=== PATIENT | male | born 1985 ===

== ENCOUNTER → 2020-11-22 | Emergency (ER) | payer SELFPAY ==
[~2020-11-22] MED LIST: ACETAMINOPHEN 325 MG TAB PO PRN; ALBUTEROL 2.5 MG/3 ML NEBU IH PRN; ALUM-MAG HYDROXIDE-SIMETHICONE 200-200-20MG/5ML ORAL LIQD 30 ML PO PRN; ASPIRIN 325 MG TAB PO ONE; ASPIRIN 81 MG TAB CHEW PO SCH; FAMOTIDINE 20 MG TAB PO SCH; FUROSEMIDE 40 MG/4 ML INJ IV ONE; FUROSEMIDE 40 MG/4 ML INJ IV SCH; LISINOPRIL 20 MG TAB PO SCH; METOPROLOL TARTRATE 25 MG TAB PO SCH; NALOXONE 0.4 MG/1 ML INJ IV PRN; NITROGLYCERIN 2% OINT 1 GM TP ONE; ONDANSETRON 4 MG/2 ML INJ IV PRN; SENNOSIDES 8.6 MG TAB PO SCH; SPIRONOLACTONE 25 MG TAB PO SCH; oxyCODONE /ACETAMINOPHEN 5-325MG TAB PO PRN
--- NOTE | 2020-11-22 07:18 | XRay Report ---
CHEST 1 VIEW 11/22/2020 6:05 AM INDICATION / CLINICAL INFORMATION: Cough and STEVIE. COMPARISON: None available. FINDINGS: SUPPORT DEVICES: None. HEART / MEDIASTINUM: Mild cardiomegaly. LUNGS / PLEURA: Mild interstitial edema. No pneumothorax. ADDITIONAL FINDINGS: No significant additional findings. IMPRESSION: 1. Mild CHF Signer Name: Enrique Salgado MD Signed: 11/22/2020 7:13 AM Workstation Name: [id number]
[2020-11-22 08:54] LABS: Basophils % (Auto) 0.6 % (0.0-1.8); Eosinophils # (Auto) 0.1 K/mm3 (0.0-0.4); Eosinophils % (Auto) 1.7 % (0.0-4.3); Hematocrit 40.1 % (35.5-45.6); Hemoglobin 13.3 gm/dl (11.8-15.2); Lymphocytes # (Auto) 1.5 K/mm3 (1.2-5.4); Lymphocytes % (Auto) 27.4 % (13.4-35.0); Mean Corpuscular HGB Conc 33 % (32-34); Mean Corpuscular Volume 86 fl (84-94); Monocytes # (Auto) 0.5 K/mm3 (0.0-0.8); Monocytes % (Auto) 8.9 % (0.0-7.3); Platelet Count 215 K/mm3 (140-440); Red Blood Count 4.69 M/mm3 (3.65-5.03); Red Cell Distribution Width 15.4 % (13.2-15.2)
[2020-11-22 09:03] LABS: Partial Thromboplastin Time 23.5 Sec. (24.2-36.6)
--- NOTE | 2020-11-22 09:07 | Emergency Department Report ---
ED Shortness of Breath HPI - General Chief Complaint: Dyspnea/Respdistress Stated Complaint: SOB Time Seen by Provider: 11/22/20 08:02 Source: patient Mode of arrival: Ambulatory Limitations: No Limitations - History of Present Illness Initial Comments: This is a 34-year-old male with a history of hypertension and 1 previous hospitalization at [facility] in [facility] for blood pressure out of control. Despite this, the patient does state that he has no history of CHF and that his blood pressure has been under control. He states he is on vacation from [place] but only forgot to take his blood pressure medicine 1 day. Last night he described orthopnea. He has been having dyspnea on exertion. He denies chest pain, pressure or discomfort. He does not describe nausea or vomiting fever or chills. He states he has had some dry cough since yesterday. He does admit to "eating a lot of seafood" and perhaps increase salt in his diet. He states, he has been monitoring his blood pressure and it has not been elevated. He presents with severe uncontrolled hypertension. MD Complaint: shortness of breath, cough -: Gradual, hour(s), days(s) Known History Of: other (Hypertension) Context: other - Related Data Allergies Allergy/AdvReac Type Severity Reaction Status Date / Time No Known Allergies Allergy Unverified 11/22/20 06:48 ED Review of Systems ROS: Stated complaint: SOB Other details as noted in HPI Constitutional: denies: chills, fever Eyes: denies: eye pain, vision change ENT: denies: ear pain, throat pain Respiratory: see HPI, cough, orthopnea, shortness of breath, SOB with exertion, SOB at rest. denies: wheezing Cardiovascular: denies: chest pain, palpitations, edema Endocrine: no symptoms reported Gastrointestinal: denies: abdominal pain, nausea, diarrhea Genitourinary: denies: urgency, dysuria Musculoskeletal: denies: back pain, joint swelling, arthralgia Skin: denies: rash, lesions Neurological: denies: headache, weakness, paresthesias Psychiatric: denies: anxiety, depression Hematological/Lymphatic: denies: easy bleeding, easy bruising ED Past Medical Hx - Past Medical History Previous Medical History?: Yes Hx Hypertension: Yes Additional medical history: obesity - Surgical History Past Surgical History?: Yes Hx Cholecystectomy: Yes - Social History Smoking Status: Never Smoker Substance Use Type: None ED Physical Exam - General Limitations: Physical Limitation General appearance: alert, in no apparent distress - Head Head exam: Present: atraumatic, normocephalic - Eye Eye exam: Present: normal appearance. Absent: scleral icterus - ENT ENT exam: Present: mucous membranes moist - Neck Neck exam: Present: normal inspection. Absent: tenderness, meningismus - Respiratory Respiratory exam: Present: rhonchi (Basilar). Absent: respiratory distress - Cardiovascular Cardiovascular Exam: Present: normal rhythm, tachycardia (Mildly), S3. Absent: systolic murmur, diastolic murmur, rubs, gallop - GI/Abdominal GI/Abdominal exam: Present: soft, normal bowel sounds. Absent: distended, tenderness, guarding, rebound - Rectal Rectal exam: Present: deferred - Extremities Exam Extremities exam: Present: normal inspection. Absent: pedal edema, joint swelling, calf tenderness - Back Exam Back exam: Present: normal inspection - Neurological Exam Neurological exam: Present: alert, oriented X3, CN II-XII intact. Absent: motor sensory deficit - Psychiatric Psychiatric exam: Present: normal affect, normal mood - Skin Skin exam: Present: warm, dry, intact, normal color. Absent: rash ED Course Vital Signs 11/22/20 11/22/20 06:41 08:35 Temperature 99.0 F Pulse Rate 110 H 105 H Respiratory 22 Rate Blood Pressure 186/129 Blood Pressure 163/129 [Left] O2 Sat by Pulse 98 96 Oximetry - Reevaluation(s) Reevaluation #1: Patient given labetalol and Nitropaste initially. Added Lasix. Discussed with Dr. Foley. Admit to Dr. Cortes's service. 11/22/20 09:59 ED Medical Decision Making - Lab Data Result diagrams: 11/22/20 08:15 11/22/20 08:15 Laboratory Results - last 24 hr 11/22/20 11/22/20 11/22/20 08:15 08:15 08:15 WBC 5.6 RBC 4.69 Hgb 13.3 Hct 40.1 MCV 86 MCH 28 MCHC 33 RDW 15.4 H Plt Count 215 Lymph % (Auto) 27.4 [place] % (Auto) 8.9 H Eos % (Auto) 1.7 Baso % (Auto) 0.6 Lymph # (Auto) 1.5 [place] # (Auto) 0.5 Eos # (Auto) 0.1 Baso # (Auto) 0.0 Seg Neutrophils % 61.4 Seg Neutrophils # 3.4 PT 13.0 INR 1.00 APTT 23.5 L Sodium 138 Potassium 4.0 Chloride 102.7 Carbon Dioxide 24 Anion Gap 15 BUN 9 Creatinine 1.0 Estimated GFR > 60 BUN/Creatinine Ratio 9 Glucose 146 H Calcium 8.7 Magnesium 1.90 Total Bilirubin Direct Bilirubin Indirect Bilirubin AST ALT Alkaline Phosphatase Total Creatine Kinase 285 H CK-MB (CK-2) 3.0 CK-MB (CK-2) Rel Index 1.0 Troponin T < 0.010 NT-Pro-B Natriuret Pep Total Protein Albumin Albumin/Globulin Ratio 11/22/20 08:15 WBC RBC Hgb Hct MCV MCH MCHC RDW Plt Count Lymph % (Auto) [place] % (Auto) Eos % (Auto) Baso % (Auto) Lymph # (Auto) [place] # (Auto) Eos # (Auto) Baso # (Auto) Seg Neutrophils % Seg Neutrophils # PT INR APTT Sodium Potassium Chloride Carbon Dioxide Anion Gap BUN Creatinine Estimated GFR BUN/Creatinine Ratio Glucose Calcium Magnesium Total Bilirubin 0.90 Direct Bilirubin 0.3 H Indirect Bilirubin 0.6 AST 45 H ALT 74 H Alkaline Phosphatase 55 Total Creatine Kinase CK-MB (CK-2) CK-MB (CK-2) Rel Index Troponin T NT-Pro-B Natriuret Pep 3779 H Total Protein 6.0 L Albumin 3.7 L Albumin/Globulin Ratio 1.6 Critical care attestation.: If time is entered above; I have spent that time in minutes in the direct care of this critically ill patient, excluding procedure time. ED Disposition Clinical Impression: Accelerated hypertension Acute congestive heart failure Qualifiers: Heart failure type: unspecified Qualified Code(s): I50.9 - Heart failure, unspecified Disposition: OP ADMIT IP TO THIS HOSP Is pt being admited?: Yes Does the pt Need Aspirin: Yes Condition: Stable Instructions: Hypertension (ED) Referrals: PRIMARY CARE, [Primary Care Provider] - 3-5 Days Time of Disposition: 10:00
[2020-11-22 09:20] LABS: BUN/Creatinine Ratio 9; Blood Urea Nitrogen 9 mg/dL (9-20); Calcium 8.7 mg/dL (8.4-10.2); Hemolysis Index 3
[2020-11-22 09:24] LABS: Albumin 3.7 g/dL (3.9-5); Bilirubin,Direct 0.3 mg/dL (0-0.2)
--- NOTE | 2020-11-22 11:10 | History and Physical Report ---
Medications and Allergies Allergies Allergy/AdvReac Type Severity Reaction Status Date / Time No Known Allergies Allergy Unverified 11/22/20 06:48 Exam - Constitutional Vitals: Temp Pulse Resp BP Pulse Ox 99.0 F 93 H 22 153/120 95 11/22/20 06:41 11/22/20 09:35 11/22/20 06:41 11/22/20 09:35 11/22/20 09:35 HEART Score - HEART Score Troponin: Troponin T < 0.010 ng/mL (0.00-0.029) 11/22/20 08:15 Results - Labs CBC & Chem 7: 11/22/20 08:15 11/22/20 08:15 Labs: Laboratory Last Values WBC 5.6 K/mm3 (4.5-11.0) 11/22/20 08:15 RBC 4.69 M/mm3 (3.65-5.03) 11/22/20 08:15 Hgb 13.3 gm/dl (11.8-15.2) 11/22/20 08:15 Hct 40.1 % (35.5-45.6) 11/22/20 08:15 MCV 86 fl (84-94) 11/22/20 08:15 MCH 28 pg (28-32) 11/22/20 08:15 MCHC 33 % (32-34) 11/22/20 08:15 RDW 15.4 % (13.2-15.2) H 11/22/20 08:15 Plt Count 215 K/mm3 (140-440) 11/22/20 08:15 Lymph % (Auto) 27.4 % (13.4-35.0) 11/22/20 08:15 [place] % (Auto) 8.9 % (0.0-7.3) H 11/22/20 08:15 Eos % (Auto) 1.7 % (0.0-4.3) 11/22/20 08:15 Baso % (Auto) 0.6 % (0.0-1.8) 11/22/20 08:15 Lymph # (Auto) 1.5 K/mm3 (1.2-5.4) 11/22/20 08:15 [place] # (Auto) 0.5 K/mm3 (0.0-0.8) 11/22/20 08:15 Eos # (Auto) 0.1 K/mm3 (0.0-0.4) 11/22/20 08:15 Baso # (Auto) 0.0 K/mm3 (0.0-0.1) 11/22/20 08:15 Seg Neutrophils % 61.4 % (40.0-70.0) 11/22/20 08:15 Seg Neutrophils # 3.4 K/mm3 (1.8-7.7) 11/22/20 08:15 PT 13.0 Sec. (12.2-14.9) 11/22/20 08:15 INR 1.00 (0.87-1.13) 11/22/20 08:15 APTT 23.5 Sec. (24.2-36.6) L 11/22/20 08:15 Sodium 138 mmol/L (137-145) 11/22/20 08:15 Potassium 4.0 mmol/L (3.6-5.0) 11/22/20 08:15 Chloride 102.7 mmol/L (98-107) 11/22/20 08:15 Carbon Dioxide 24 mmol/L (22-30) 11/22/20 08:15 Anion Gap 15 mmol/L 11/22/20 08:15 BUN 9 mg/dL (9-20) 11/22/20 08:15 Creatinine 1.0 mg/dL (0.8-1.3) 11/22/20 08:15 Estimated GFR > 60 ml/min 11/22/20 08:15 BUN/Creatinine Ratio 9 % 11/22/20 08:15 Glucose 146 mg/dL (75-100) H 11/22/20 08:15 Calcium 8.7 mg/dL (8.4-10.2) 11/22/20 08:15 Magnesium 1.90 mg/dL (1.7-2.3) 11/22/20 08:15 Total Bilirubin 0.90 mg/dL (0.1-1.2) 11/22/20 08:15 Direct Bilirubin 0.3 mg/dL (0-0.2) H 11/22/20 08:15 Indirect Bilirubin 0.6 mg/dL 11/22/20 08:15 AST 45 units/L (5-40) H 11/22/20 08:15 ALT 74 units/L (7-56) H 11/22/20 08:15 Alkaline Phosphatase 55 units/L (35-129) 11/22/20 08:15 Total Creatine Kinase 285 units/L (55-170) H 11/22/20 08:15 CK-MB (CK-2) 3.0 ng/mL (0.0-4.0) 11/22/20 08:15 CK-MB (CK-2) Rel Index 1.0 (0-4) 11/22/20 08:15 Troponin T < 0.010 ng/mL (0.00-0.029) 11/22/20 08:15 NT-Pro-B Natriuret Pep 3779 pg/mL (0-450) H 11/22/20 08:15 Total Protein 6.0 g/dL (6.3-8.2) L 11/22/20 08:15 Albumin 3.7 g/dL (3.9-5) L 11/22/20 08:15 Albumin/Globulin Ratio 1.6 % 11/22/20 08:15
[2020-11-22 11:19] VITALS: BP 151/113
--- NOTE | 2020-11-22 12:02 | Event Note ---
Date: 11/22/20 Per ED patient left AMA from the ED before was seen.
--- NOTE | 2020-11-23 09:48 | Electrocardiograph Report ---
[facility] Test Date: 2020-11-22 Test Time: 06:47:32 Pat Name: ELÍAS WALTER Department: Room: Gender: M [employer]: TUGN : 1985 Requested By: ED DOC Order Number: [id number] Reading MD: Bentley Wilson Measurements Intervals [place] Rate: 106 P: 62 PA: 123 QRS: 48 QRSD: 91 T: 36 QT: 369 QTc: 490 Interpretive Statements Sinus tachycardia Prolonged QT interval No previous ECG available for comparison Electronically Signed On 11-23-2020 6:48:09 PDT by Bentley Wilson
== END | disposition left against medical advice (07) ==
LOC: ED 06:38
DX: I11.0 Hypertensive heart disease with heart failure (principal); I50.9 Heart failure, unspecified; E66.9 Obesity, unspecified; Z68.41 Body mass index [BMI] 40.0-44.9, adult; Z90.49 Acquired absence of other specified parts of digestive tract
CPT/HCPCS: 36415; 71045; 80048; 80076; 82550; 82553; 83735; 83880; 84484; 85025; 85610; 85730; 93005; 96374; 96375; 99285; J1940